=== PATIENT | male | born 1970 | race Two or more races ===

== ENCOUNTER → 2018-04-10 | Outpatient (CLI) | END | disposition home or self-care (01) ==

== ENCOUNTER 2019-01-02 06:02 | Emergency (ER) | payer SELFPAY ==
[~2019-01-02] VITALS: Ht 175.3 cm; Wt 114.1 kg
[~2019-01-02 06:02] MED LIST: ALBU90AE INHALATION; PRED20TA PO
[2019-01-02 06:13] VITALS: BP 157/83; PULSE 64; RESP 19; Ht 175.3 cm; Wt 114.1 kg
[2019-01-02] MEDS ORDERED: KETOROLAC 30 MG INJ IM STA (07:09)
[2019-01-02] MEDS ORDERED: ONDANSETRON (ODT) 4 MG TAB ODT STA (08:15)
[2019-01-02] MEDS ORDERED: ONDA4TAB14 PO (08:18)
[2019-01-02] MEDS ORDERED: IBUP800T48 PO (08:18)
[2019-01-02] MEDS ORDERED: HYDR-4011 PO (08:18)
--- NOTE | 2019-01-02 08:21 | ERD ---
ER Documentation Chief Complaint Chief Complaint BACK PAIN X4HRS; NO OTHER S/S; NO INJ HPI This is a 48-year-old male patient who presents the emergency room with complaint of left flank pain starting suddenly while he was sleeping approximately 4 hours [employer]. Denies history of kidney stones or other medical problems. Denies difficulty urinating, denies hematuria, denies radiating pain. No lower extremity paresthesia, no chest pain, no shortness of breath. + Nausea. ROS All systems reviewed and are negative except as per history of present illness. Medications Home Meds Active Scripts Ondansetron (Ondansetron Odt) 4 Mg Tab.rapdis, 4 MG PO Q6H PRN for NAUSEA AND/OR VOMITING for 7 Days, #10 TAB Prov:FLAKO SHEPPARD NP 01/02/19 Ibuprofen* (Motrin*) 800 Mg Tab, 800 MG PO Q6 for pain, #30 TAB Prov:FLAKO SHEPPARD NP 01/02/19 Hydrocodone/Acetaminophen ([place] 5-325 Tablet) 1 Each Tablet, 1 TAB PO Q6H PRN for PAIN, #7 TAB Prov:FLAKO SHEPPARD NP 01/02/19 Prednisone* (Prednisone*) 20 Mg Tab, 60 MG PO DAILY for 4 Days, TAB Start on 08/21/2015 Prov:PRANEETH LEMUS I. [employer]ATION MANAGER 08/20/15 Albuterol Sulfate (Proair Respiclick) 90 Mcg Aer.pow.ba, 2 PUFFS INHALATION Q6 PRN for WHEEZING, #1 BOTTLE Prov:PRANEETH LEMUS I. [employer] PLANTATION MANAGER 08/20/15 Allergies Allergies: Coded Allergies: No Known Allergy (Unverified , 08/20/15) PMhx/Soc Medical and Surgical Hx: pt denies Medical Hx, pt denies Surgical Hx History of Surgery: No Anesthesia Reaction: No Hx Neurological Disorder: No Hx Respiratory Disorders: No Hx Cardiac Disorders: No Hx Psychiatric Problems: No Hx Miscellaneous Medical Probl: No Hx Alcohol Use: No Hx Substance Use: No Hx Tobacco Use: No Smoking Status: Never smoker FmHx Family History: No diabetes, No coronary disease, No other Physical Exam Vitals Vital Signs Date Temp Pulse Resp B/P (MAP) Pulse Ox O2 O2 Flow FiO2 Time Delivery Rate 01/02/19 98.3 64 19 157/83 98 06:13 (107) Physical Exam Const: No acute distress Head: Atraumatic Eyes: Normal Conjunctiva, PERRL ENT: Normal External Ears, Nose and Mouth. Neck: Full range of motion. No meningismus. No lymphadenopathy. Resp: Clear to auscultation bilaterally, equal chest rise Cardio: Regular rate and rhythm, no murmurs Abd: Soft, non tender, non distended. Normal bowel sounds. Left flank pain. Skin: No petechiae or rashes Back: No midline or point tenderness, +Left CVT Ext: No cyanosis, or edema Neur: Awake and alert Psych: Normal Mood and Affect Results 24 hrs Laboratory Tests Test 01/02/19 06:48 Bedside Urine pH (LAB) 5.0 Bedside Urine Protein (LAB) 1+ Bedside Urine Glucose (UA) Negative Bedside Urine Ketones (LAB) Negative Bedside Urine Blood 2+ Bedside Urine Nitrite (LAB) Negative Bedside Urine Leukocyte Esterase (L Negative Current Medications Medications Dose Sig/Tona Start Time Status Last (Trade) Ordered Route PRN Stop Time Admin Dose Reason Admin Ketorolac 30 mg ONCE STAT 01/02/19 DC 01/02/19 Tromethamine IM 07:09 07:15 (Toradol) 01/02/19 07:12 1 tab ONCE ONCE 01/02/19 DC 01/02/19 Acetaminophen PO 08:30 08:20 / 01/02/19 08:31 Hydrocodone Bitart ([place] (10/325)) Ondansetron 4 mg ONCE STAT 01/02/19 DC 01/02/19 HCl (Zofran ODT 08:15 08:20 Odt) 01/02/19 08:16 Procedures/MDM PROCEDURES/MDM EKG: Read by Dr. Singh, attending physician. EKG shows normal sinus rhythm at a rate of 61 bpm. No arrhythmias, acute ST elevations or T wave changes were noted. DIAGNOSTIC IMAGING: Read by radiologist. CT abd/pel 1. Mild left-sided hydroureteronephrosis with three small calculi identified within the distal left ureter (1 mm), at the ureterovesical junction (2 mm) as well as at the ureterovesical junction passing into the bladder (3 x 2 mm) creating a [address] appearance. 2. Minimal right and small left inguinal hernias containing fat. 3. Mild retained stool within the proximal colon. 4. Hepatic steatosis. LAB INTERPRETATION: Urinalysis positive blood, negative leukocyte esterase, negative ketones, negative nitrites -Medications: Toradol, [place], Zofran Patient tolerated medication well with no adverse reactions. Patient reported improvement in pain. -Consultation: Dr. Singh [facility]: This is a 48-year-old male patient who presents to the emergency room with complaint of sudden onset of left sided flank pain. Upon arrival patient states that he is free of pain however would like to be evaluated for the pain he had prior to arrival. During ED course patient's pain returned and was severe left- sided pain to where patient was unable to stand straight. Due to positive blood in urine CT scan of abdomen pelvis was initiated with positive nephrolithiasis. As patient's symptoms are new onset, no fever, no vomiting, no abdominal pain, no difficulty with urination, low suspicion for obstructive stone, severe hydronephrosis, infection, or other life-threatening etiology. Patient states he has doctor he is able to follow-up with within the next 48 hours. Patient provided with instructions on straining urine, bringing stone to provider if collected, increasing hydration, pain management, and signs and symptoms of worsening of condition and when to return to the emergency department. Patient's pain and nausea well controlled during ED course, patient verbalized understanding of self-care, follow-up, and signs and symptoms to return to the emergency department. Patient with stable vital signs and steady gait at time of discharge. DISPOSITION and PLAN: RX: [place], ibuprofen, Zofran The patient has been discharge home to follow-up with community physician. Departure Diagnosis: Primary Impression: Nephrolithiasis Condition: Stable Patient Instructions: Kidney Stone W/ Colic Referrals: [facility] YOU HAVE RECEIVED A MEDICAL SCREENING EXAM AND THE RESULTS INDICATE THAT YOU DO NOT HAVE A CONDITION THAT REQUIRES URGENT TREATMENT IN THE EMERGENCY DEPARTMENT. FURTHER EVALUATION AND TREATMENT OF YOUR CONDITION CAN WAIT UNTIL YOU ARE SEEN IN YOUR DOCTORS OFFICE WITHIN THE NEXT 1-2 DAYS. IT IS YOUR RESPONSIBILITY TO MAKE AN APPOINTMENT FOR FOLOW-UP CARE. IF YOU HAVE A PRIMARY DOCTOR --you should call your primary doctor and schedule an appointment IF YOU DO NOT HAVE A PRIMARY DOCTOR YOU CAN CALL OUR PHYSICIAN REFERRAL HOTLINE AT IF YOU CAN NOT AFFORD TO SEE A PHYSICIAN YOU CAN CHOSE FROM THE FOLLOWING [facility] [id number]. [facility] [address] [facility]. [address] [facility] [address] [facility] [facility] [address] [facility]. [facility] [address] [facility]. [facility] [address] Additional Instructions: Thank you very much for allowing us to participate in your care. Your health and safety is our top priority at [facility]. Call your primary care doctor TOMORROW for an appointment during the next 2-4 days and bring all the information and medications prescribed. Have prescriptions filled and follow precisely the directions on the label. If the symptoms get worse and your provider is unavailable, return to the Emergency Department immediately. INCREASE HYDRATION, TAKE IBUPROFEN FOR PAIN, USE NORCO FOR SEVERE PAIN FOLLOW-UP WITH YOUR PRIMARY CARE DOCTOR IN THE NEXT 2 TO 3 DAYS FOR REEVALUATION RETURN TO THE EMERGENCY ROOM IMMEDIATELY WITH FEVER, SEVERE PAIN, BRIGHT RED BLOOD IN URINE, DIFFICULTY URINATING FLAKO SHEPPARD NP Jan 02, 2019 08:21
[2019-01-02] MEDS ORDERED: HYDROCODONE/APAP (10/325) TAB PO ONE (08:30)
== END 2019-01-02 08:33 | disposition home or self-care (01) ==
LOC: FTE 06:02
DX: N20.0 Calculus of kidney (principal)
CPT/HCPCS: 74176; 81003; 93005; J1885